=== PATIENT | female | born 1985 | race Caucasian/White ===

== ENCOUNTER 2017-02-03 17:37 | Emergency (ER) | payer OTHER, MEDICAID ==
[2017-02-03] MEDS ORDERED: ACETAMINOPHEN 500 MG TABLET ONE ×3 (18:11→19:26)
[2017-02-03] MEDS ORDERED: SODIUM CHLORIDE 0.9% 1,000 ML ONE (18:11)
[2017-02-03 18:45] LABS: ABSOLUTE NEUTROPHIL COUNT 3.4 K/mm3 (1.8-7.7); BASO % 0.5 % (0.2-1.0); EOS # 0.1 (0.0-0.5); EOS % 0.9 % (0.9-2.9); HEMATOCRIT 39.8 % (37.0-47.0); HEMOGLOBIN 13.4 gm/l (12.0-16.0); IMM NEUT% 0.4 % (0-1); LYMPH # 1.7 (1.0-4.8); LYMPH % 29.4 % (15-45); MEAN CELL VOLUME 97.3 fl (81.0-99.0); MEAN CORPUSCULAR HEMOGLOBIN 32.8 pg (27.0-31.0); MEAN CORPUSCULAR HGB CONC 33.7 g/dl (33.0-37.0); MEAN PLATELET VOLUME 11.7 fl (7.4-10.4); MONO # 0.5 (0.0-0.8); MONO % 8.9 % (4-12); NEUT % 59.9 % (43-75); PLATELET COUNT 198 K/mm3 (130-400); RED CELL DISTRIBUTION WIDTH 11.8 % (11.5-14.5)
[2017-02-03 18:58] LABS: TROPONIN I 0.01 ng/ml (0.0-0.06)
[2017-02-03 19:08] LABS: THYROID STIMULATING HORMONE 1.16 uIU/ml (0.34-5.60)
--- NOTE | 2017-02-03 19:09 | CT ---
HEAD CT WITHOUT CONTRAST HISTORY: Syncopal episode, fell and hit head. No intravenous contrast administered. Contiguous axial images acquired from skull base to vertex. COMPARISON: 11/14/2009 BRAIN VOLUME:Grossly unremarkable for patient age. VENTRICULAR SIZE:No gross ventriculomegaly. FOCAL MASS EFFECT:None. ACUTE INTRACRANIAL HEMORRHAGE:None. CALVARIUM:Grossly intact. VISIBLE PARANASAL SINUSES AND MASTOID AIR CELLS:Grossly clear. IMPRESSION: No gross mass effect, depressed calvarial fracture, or acute intracranial hemorrhage. Results were electronically transmitted to the electronic medical record at 02/03/2017 at 1905 hours.
--- NOTE | 2017-02-03 19:11 | CT ---
CERVICAL SPINE CT WITHOUT CONTRAST HISTORY: Status post fall. No intravenous contrast administered contiguous axial images acquired from the posterior fossa to the mid T2 level. FINDINGS ALIGNMENT: Grossly unremarkable. Patient in neck brace. COMPRESSION DEFORMITY: None. DISC SPACES: Grossly preserved. FRACTURE: No displaced fracture. DEGENERATIVE CHANGE: Small central disc protrusions at the C2-3 through C5-6 levels. PARASPINAL SOFT TISSUES: Evidence of prior thyroid surgery. LUNG APICES: Minor apical fibrotic change. IMPRESSION: No cervical spine fracture identified. Postsurgical change at the thyroid bed. Results were electronically transmitted to the electronic medical record at 02/03/2017 at 1907 hours.
[2017-02-03 19:23] LABS: SPECIFIC GRAVITY 1.015 (1.001-1.030); URINE BILIRUBIN NEGATIVE (NEGATIVE); URINE BLOOD NEGATIVE (NEGATIVE); URINE GLUCOSE (UA) NEGATIVE (NEGATIVE); URINE LEUKOCYTE ESTERASE TRACE (NEGATIVE); URINE NITRITE NEGATIVE (NEGATIVE); URINE PROTEIN NEGATIVE (NEGATIVE); URINE UROBILINOGEN NORMAL (0-1 mg/dl)
[2017-02-03 19:24] LABS: URINE APPEARANCE CLEAR; URINE COLOR LIGHT YELLOW
[2017-02-03 19:28] LABS: ALB/GLOB RATIO 1.7 (>1.0); ALBUMIN 4.6 gm/dL (3.5-5.7); CALCIUM 9.4 mg/dL (8.6-10.3)
[2017-02-03 19:31] LABS: URINE BACTERIA NONE SEEN; URINE EPITHELIAL CELLS 0-2 /hpf; URINE RBC 0-2 /hpf
--- NOTE | 2017-02-03 20:34 | CT ---
THORACIC SPINE CT WITHOUT CONTRAST LUMBAR CT WITHOUT CONTRAST HISTORY: Status post fall with back pain. No intravenous contrast administered. Contiguous axial images acquired from the from the lower C6 to mid L1 level, and from the mid L1 to upper S2 level. FINDINGS: ALIGNMENT: Normal thoracic alignment. Subtle dextroconvex curvature at the thoracolumbar junction. DISC SPACES: Findings of endplate herniations at the L4-S1 levels, disc spaces otherwise preserved. COMPRESSION DEFORMITY: No dominant compression deformity. FRACTURE: No displaced fracture. OSSEOUS LESIONS: Small bone island of the T11 vertebral body. DISC DEGENERATION: At L5-S1 there is a broad-based central protrusion abutting the S1 nerve roots. At L4-5 there is a broad-based central protrusion with L5 nerve root displacement. There is minor disc bulge formation at L2-3 and L3-4 levels. CANAL STENOSIS: Mild to moderate at the L4-5 level. FACET JOINTS: Grossly unremarkable. NEURAL FORAMINA: Mild to moderate neural foraminal narrowing at the L4-5 and L5-S1 levels. PARASPINAL SOFT TISSUES: Nonobstructive renal calculi bilaterally, up to 2 mm on the left, up to 4 mm on the right. Surgical clips along left-sided thyroid bed. No dependent pleural effusion.. IMPRESSION: No thoracic or lumbar spine fracture identified. Lower lumbar disc degeneration, correlate for possible L5 and S1 radiculopathy. Nonobstructive bilateral renal calculi up to 4 mm in size. Results were electronically transmitted to the electronic medical record at 02/03/2017 at 2030 hours.
[2017-02-03] MEDS ORDERED: LIDOCAINE 5% PATCH ONE (20:55)
[2017-02-03] MEDS ORDERED: OXYCODONE HCL 5 MG TABLET ONE (20:55)
[2017-02-03] MEDS ORDERED: METHOCARBAMOL 750 MG TABLET ONE (20:55)
== END 2017-02-03 21:19 | disposition home or self-care (01) ==
LOC: ED 17:37
DX: R55 Syncope and collapse (principal); M51.37 Other intervertebral disc degeneration, lumbosacral region; M54.2 Cervicalgia; M54.5 Low back pain; Q06.8 Other specified congenital malformations of spinal cord; E03.9 Hypothyroidism, unspecified; J45.909 Unspecified asthma, uncomplicated; W19.XXXA Unspecified fall, initial encounter; Y92.69 Other specified industrial and construction area as the place of occurrence of the external cause; Y99.0 Civilian activity done for income or pay
CPT/HCPCS: 84703; 85025; 82550; 80053; 84439; 84443; 84484; 81001; 72125; 70450; 72131; 72128; 99284 ×2; 51701; 93005; A9270 ×6; J7030

== ENCOUNTER 2017-02-09 23:03 | Emergency (ER) | payer OTHER, MEDICAID ==
[2017-02-10] MEDS ORDERED: METOPROLOL TARTRATE 50 MG TABLET ONE (01:13)
[2017-02-10 01:14] LABS: ABSOLUTE NEUTROPHIL COUNT 3.3 K/mm3 (1.8-7.7); BASO # 0.1 K/mm3 (0.0-0.2); BASO % 0.9 % (0.2-1.0); EOS # 0.1 (0.0-0.5); EOS % 1.2 % (0.9-2.9); HEMATOCRIT 40.1 % (37.0-47.0); HEMOGLOBIN 13.5 gm/l (12.0-16.0); IMM NEUT% 0.2 % (0-1); LYMPH % 34.4 % (15-45); MEAN CORPUSCULAR HGB CONC 33.7 g/dl (33.0-37.0); MEAN PLATELET VOLUME 10.5 fl (7.4-10.4); MONO # 0.5 (0.0-0.8); MONO % 7.7 % (4-12); NEUT % 55.6 % (43-75); PLATELET COUNT 213 K/mm3 (130-400); RED CELL DISTRIBUTION WIDTH 11.6 % (11.5-14.5)
[2017-02-10 01:35] LABS: ALB/GLOB RATIO 1.7 (>1.0); ALBUMIN 4.8 gm/dL (3.5-5.7); CALCIUM 9.7 mg/dL (8.6-10.3)
[2017-02-10] MEDS ORDERED: DIAZEPAM 5 MG TABLET ONE (02:21)
== END 2017-02-10 03:21 | disposition home or self-care (01) ==
LOC: ED 23:03
DX: R07.89 Other chest pain (principal); R00.2 Palpitations; R51 Headache; R11.0 Nausea; J45.909 Unspecified asthma, uncomplicated; E11.9 Type 2 diabetes mellitus without complications
CPT/HCPCS: 85025; 80053; 84484; 99283; 93005; 99284; A9270 ×2